=== PATIENT | female | born 1955 | race Caucasian/White ===

== ENCOUNTER 2016-11-24 09:55 | Day surgery (SDC) | payer BC ==
[~2016-11-24] VITALS: Ht 160 cm; Wt 73.9 kg
[~2016-11-24 09:55] MED LIST: ADULT LOW DOSE81 MG PO; ALLOPURINOL100 MG PO; COLACE100 MG PO; COZAAR25 MG PO; LEVOTHYROXINE25 MCG PO; LIPITOR40 MG PO; LISINOPRIL2.5 MG PO; METFORMIN HCL500 MG PO; METOPROLOL SUCC25 MG PO; TOPAMAX25 MG PO; TORSEMIDE20 MG PO
--- NOTE | 2016-11-24 12:01 | NUR ---
11/24/16 1201 Tennille Oh REPORT FROM IT PROJECT LEAD.
== END 2016-11-24 11:50 | disposition home or self-care (01) ==
LOC: OPS 09:55 → DS 09:55 → OPS 10:45
PROVIDERS: Colon & Rectal Surgery
PROC: 0DBE8ZX Excision of Large Intestine, Via Natural or Artificial Opening Endoscopic, Diagnostic (ICD-10-PCS; 2016-11-24)
PROC: 0DBP8ZX Excision of Rectum, Via Natural or Artificial Opening Endoscopic, Diagnostic (ICD-10-PCS; 2016-11-24)
PROC: 0DBN8ZX Excision of Sigmoid Colon, Via Natural or Artificial Opening Endoscopic, Diagnostic (ICD-10-PCS; principal; 2016-11-24 10:45)
DX: Z12.11 Encounter for screening for malignant neoplasm of colon (principal); D12.6 Benign neoplasm of colon, unspecified; K63.5 Polyp of colon; I25.10 Atherosclerotic heart disease of native coronary artery without angina pectoris; I25.2 Old myocardial infarction; I10 Essential (primary) hypertension; J45.909 Unspecified asthma, uncomplicated; E78.5 Hyperlipidemia, unspecified; E03.9 Hypothyroidism, unspecified; E11.9 Type 2 diabetes mellitus without complications; M10.9 Gout, unspecified; Z79.899 Other long term (current) drug therapy; Z98.890 Other specified postprocedural states; Z88.5 Allergy status to narcotic agent
CPT/HCPCS: 00810; J2250; J2704; J3010; J7120

== ENCOUNTER 2017-04-14 18:00 | Emergency (ER) | payer OTHER, BC ==
[~2017-04-14] VITALS: Ht 160 cm; Wt 73.9 kg
[2017-04-14] MEDS ORDERED: TOPIRAMATE50 MG PO (18:18)
[2017-04-14] MEDS ORDERED: FUROSEMIDE40 MG PO (18:18)
[2017-04-14] MEDS ORDERED: HAIR, SKIN & N1 EAC1 PO (18:19)
[2017-04-14] MEDS ORDERED: BACLOFEN10 MG PO (18:41)
[2017-04-14] MEDS ORDERED: KETOROLAC TROME10 MG PO (18:41)
== END 2017-04-14 18:44 | disposition home or self-care (01) ==
LOC: ED 18:00
DX: S16.1XXA Strain of muscle, fascia and tendon at neck level, initial encounter (principal); M62.838 Other muscle spasm; R51 Headache; E11.9 Type 2 diabetes mellitus without complications; F32.9 Major depressive disorder, single episode, unspecified; F41.9 Anxiety disorder, unspecified; Z96.651 Presence of right artificial knee joint; Z90.49 Acquired absence of other specified parts of digestive tract; Z90.710 Acquired absence of both cervix and uterus; Z88.5 Allergy status to narcotic agent; Z79.899 Other long term (current) drug therapy; Z79.82 Long term (current) use of aspirin; V89.2XXA Person injured in unspecified motor-vehicle accident, traffic, initial encounter
CPT/HCPCS: 99283

== ENCOUNTER 2017-06-22 12:26 | Emergency (ER) | payer BC ==
[~2017-06-22] VITALS: Ht 160 cm; Wt 73.9 kg
[~2017-06-22 12:26] MED LIST changes: +BACLOFEN10 MG PO; +FUROSEMIDE40 MG PO; +HAIR, SKIN & N1 EAC1 PO; +KETOROLAC TROME10 MG PO; +TOPIRAMATE50 MG PO
[2017-06-22] MEDS ORDERED: METHYLPREDNISOLO4 M1 PO (13:28)
[2017-06-22] MEDS ORDERED: FAMCICLOVIR500 MG PO (13:28)
== END 2017-06-22 13:40 | disposition home or self-care (01) ==
LOC: ED 12:26
DX: G51.0 Bell's palsy (principal); Z96.651 Presence of right artificial knee joint; Z90.49 Acquired absence of other specified parts of digestive tract; Z98.890 Other specified postprocedural states; Z90.710 Acquired absence of both cervix and uterus; Z88.0 Allergy status to penicillin; Z79.899 Other long term (current) drug therapy; Z79.82 Long term (current) use of aspirin
CPT/HCPCS: 70450; 80053; 85025; 99284

== ENCOUNTER 2021-02-13 16:59 | Emergency (ER) | payer BC ==
[~2021-02-13] VITALS: Ht 160 cm; Wt 88.2 kg
[~2021-02-13 16:59] MED LIST changes: +FAMCICLOVIR500 MG PO; +METHYLPREDNISOLO4 M1 PO
[2021-02-13] MEDS ORDERED: PREDNISONE20 MG PO (20:32)
== END 2021-02-13 20:51 | disposition home or self-care (01) ==
LOC: ED 16:59
DX: T63.481A Toxic effect of venom of other arthropod, accidental (unintentional), initial encounter (principal); K14.8 Other diseases of tongue; K13.0 Diseases of lips; E11.9 Type 2 diabetes mellitus without complications; Z96.651 Presence of right artificial knee joint; Z90.89 Acquired absence of other organs; Z95.1 Presence of aortocoronary bypass graft; Z90.49 Acquired absence of other specified parts of digestive tract; Z90.710 Acquired absence of both cervix and uterus; Z88.5 Allergy status to narcotic agent; Z79.82 Long term (current) use of aspirin; Z79.899 Other long term (current) drug therapy
CPT/HCPCS: 96374; 96375; 99284-25; J1200; J2930

== ENCOUNTER 2022-05-19 07:00 | Day surgery (SDC) | payer BC ==
[~2022-05-19] VITALS: Ht 160 cm; Wt 82.3 kg
[~2022-05-19 07:00] MED LIST changes: +CRANBERRY200 MG PO; +JARDIANCE25 MG PO; +KRILL OIL500 MG PO; +PREDNISONE20 MG PO; +TRULICITY0.75 MG/0.
--- NOTE | 2022-05-19 08:46 | NUR ---
PT ALERT, ORIENTED AND HAS HAD PREVIOUS SCOPE. ALL QUESTIONS ASKED ANSWERED. PTS' WILL BE HERE FOR DC. PT REQUESTED PRAYER, WILL FOLLOW
--- NOTE | 2022-05-19 08:59 | NUR ---
05/19/22 0859 Trixie French 0853-PT TO PACU IN LL POSITION. EYES CLOSED SLEEPING WITH ORAL AIRWAY IN PLACE. PT DOES NOT RESPOND TO VERBAL OR TACTILE STIMULI. BREATHING EASY AND UNLABORED. SPO2 >95% ON 6L O2 SIMPLE MASK. 0858- PT CONTINUES TO SLEEP IN LL POSITION EYES CLOSED WITH ORAL AIRWAY IN PLACE. DOES NOT RESPOND TO VERBAL OR TACTILE STIMULI. BREATHING EASY AND UNLABORE. SPO2 >95% ON 6 L O2 VIA SIMPLE MASK.
--- NOTE | 2022-05-20 06:21 | OR ---
[facility] [address], [place] [address] Signed DATE OF OPERATION: SURGEON: Karyna Hinojosa MD PREOPERATIVE DIAGNOSIS: Personal history of colonic polyps at age 61 in 2017. POSTOPERATIVE DIAGNOSES: 1. 7 mm polyp distal right colon (snare). 2. 4 mm polyp at 45 cm (left colon). 3. 4 mm polyp at distal sigmoid colon. 4. 3 mm polyp at 6 cm (rectum). 5. Minimal internal hemorrhoids. PROCEDURE: Colonoscopy with snare polypectomy and hot biopsy. ESTIMATED BLOOD LOSS: None. INDICATIONS: Alissa is a 66-year-old obese diabetic female, asked to see me for followup colonoscopy. We helped her in 2017 at the age of 61. She had several hyperplastic polyps and adenomatous polyps removed. They were all less than 5 mm in diameter. We did biopsy the base of her appendix, which came back unremarkable. Due to her medical history, she does require monitored anesthesia care. We asked her to come back in one year for followup. Unfortunately with her HI and her open-heart surgery plus the COVID pandemic, she is just now returning. 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 She really has no lower GI complaints. No family history of colon cancer or polyps. In the office, I gave her a pamphlet on colonoscopy. She recalls the nature of the test. There is risk including, but not limited to gas bloating, crampy abdominal pain, bleeding, perforation requiring surgery and missed diagnosis. She recalls the need for monitored anesthesia care. She had expressed understanding and wished to proceed. PROCEDURE NOTE: Alissa was taken into our endoscopy suite and placed in the left lateral decubitus position. She was given monitored anesthesia care with propofol per our nurse trust manager. A digital rectal exam was performed and this was unremarkable. She had good sphincter tone. No external hemorrhoids. No masses. The adult colonoscope was introduced and advanced all around into the cecum under direct visualization of the Electronically Signed By: KARYNA HINOJOSA MD 05/20/22 0621 PATIENT NAME: ALISSA GIBSON OPERATIVE REPORT DATE OF : 57 REPORT #: [id number] PHYSICIAN: KARYNA HINOJOSA MD PCP: LORETTA WALKER MD REPORT IS CONFIDENTIAL AND NOT TO BE RELEASED WITHOUT AUTHORIZATION [facility] [address], [place] [address] Signed camera without difficulty. She took just a little abdominal compression to get the scope directly into the cecum itself. Overall, her prep was good. There were several areas we had to suction out. We could easily see the appendiceal orifice and it was unremarkable. The scope was then slowly withdrawn. We took pictures throughout for photodocumentation. We used our snare to divide the polyp in the distal right colon. We thought we suctioned it directly through the scope, but we never could find it in our trap. We did remove the base of that polyp with a hot biopsy forceps. The other polyps were removed easily with hot biopsy forceps. There was no diverticulosis. Once in the rectum, the scope had been retroflexed and she has just minimal internal hemorrhoid tissue. After this, the gas was suctioned out and the colonoscope removed. Alissa tolerated the procedure quite well. RECOMMENDATIONS: I will see Alissa back in my office in 7 to 14 days to review her results. Karyna Hinojosa MD ALB/MODL /[id number] cc: MD Karyna Boyce MD Lohith Veerappa Reddy, MD Copies: MAAME HARMAN MD, ANDREW L MD REDDY, LOHITH MD ~ Electronically Signed By: KARYNA HINOJOSA MD 05/20/22 0621 PATIENT NAME: ALISSA GIBSON OPERATIVE REPORT DATE OF : 57 REPORT #: [id number] PHYSICIAN: KARYNA HINOJOSA MD PCP: LORETTA WALKER MD REPORT IS CONFIDENTIAL AND NOT TO BE RELEASED WITHOUT AUTHORIZATION
--- NOTE | 2022-05-24 18:46 | PATH ---
[facility] [address] [facility] [place], [place] [address] Signed SPECIMEN(S): A ASCENDING/RIGHT COLON POLYP SPECIMEN(S): B DESCENDING/LEFT COLON POLYP AT 45 CM SPECIMEN(S): C SIGMOID POLYP AT 20 CM SPECIMEN(S): D RECTAL POLYP AT 6 CM SPECIMEN SOURCE: A. ASCENDING/RIGHT COLON POLYP B. DESCENDING/LEFT COLON POLYP AT 45 CM C. SIGMOID POLYP AT 20 CM D. RECTAL POLYP AT 6 CM CLINICAL HISTORY: History of polyps. Postop: Polyps, internal hemorrhoids. FINAL PATHOLOGIC DIAGNOSIS: A. Colon, ascending/right, polypectomy: - Tubular adenoma. - There is no evidence of high-grade dysplasia or malignancy. B. Colon, descending/left, 45 cm, polypectomy: - Benign colonic mucosa with prominent intramucosal lymphoid aggregate. - No evidence of neoplasia. C. Colon, 20 cm, polypectomy: - Benign colonic mucosa with prominent intramucosal lymphoid aggregate. - No evidence of neoplasia. D. Rectum, 6 cm, polypectomy: - Hyperplastic polyp. - There is no evidence of dysplasia or malignancy. COMMENT: Regarding specimens B and C, sections of colonic tissue demonstrate a benign intramucosal lymphoid aggregate. Intramucosal lymphoid aggregates can sometimes appear as polyps endoscopically. They have no clinical significance. There is no evidence of dysplasia or malignancy. SHARONAK:antonio:C2NR MICROSCOPIC EXAMINATION: Histologic sections of all submitted blocks are examined by light microscopy. These findings, together with the gross examination, support the pathologic diagnosis. PATIENT NAME: HOLDEN GIBSON PATHOLOGY DATE OF : 57 REPORT #: [id number] PHYSICIAN: DUANE FLOWER PCP: LORETTA WALKER MD REPORT IS CONFIDENTIAL AND NOT TO BE RELEASED WITHOUT AUTHORIZATION [facility] [address] [place], [place] [address] Signed GROSS DESCRIPTION: A. The specimen, labeled and designated "Gibson, distal ascending colon base of polyp biopsy," is received in formalin and consists of one ponce soft tissue fragment, 0.2 cm. Entirely submitted in (A1). B. The specimen, labeled and designated "Gibson, descending colon polyp at 45 cm," is received in formalin and consists of one ponce soft tissue fragment, 0.2 cm. Entirely submitted in (B1). C. The specimen, labeled and designated "Gibson, distal sigmoid colon polyp at 20 cm," is received in formalin and consists of one ponce soft tissue fragment, 0.1 cm. Entirely submitted in (C1). D. The specimen, labeled and designated "Gibson, rectum polyp at 6 cm," is received in formalin and consists of one ponce soft tissue fragment, 0.2 cm. Entirely submitted in (D1). JS (under the direct supervision of a pathologist) The Gross Description was prepared using a voice recognition system. The report was reviewed for accuracy; however, sound-alike word errors, addition and/or deletions may occur. If there is any question about this report, please contact Client Services. PERFORMING LABORATORY: The technical component was performed by [employer], [address] [place] [id number] (CLIA# [id number]). The professional interpretation was performed by [email or web address], [facility], [address] [place] [place] [address] (CLIA#: [id number]). Diagnostician: Joel Mari MD Pathologist Electronically Signed 05/24/2022 Copies: ~ PATIENT NAME: HOLDEN GIBSON PATHOLOGY DATE OF : 57 REPORT #: [id number] PHYSICIAN: DUANE PATHOLOGY PCP: LORETTA WALKER MD REPORT IS CONFIDENTIAL AND NOT TO BE RELEASED WITHOUT AUTHORIZATION
== END 2022-05-19 09:35 | disposition home or self-care (01) ==
LOC: DS 07:00 → OPS 07:00
PROVIDERS: ATTEND Colon & Rectal Surgery
PROC: 0DBF8ZX Excision of Right Large Intestine, Via Natural or Artificial Opening Endoscopic, Diagnostic (ICD-10-PCS; 2022-05-19)
PROC: 0DBM8ZX Excision of Descending Colon, Via Natural or Artificial Opening Endoscopic, Diagnostic (ICD-10-PCS; principal; 2022-05-19 08:00)
DX: Z12.11 Encounter for screening for malignant neoplasm of colon (principal); D12.2 Benign neoplasm of ascending colon; K62.1 Rectal polyp; K63.5 Polyp of colon; K64.8 Other hemorrhoids; I25.2 Old myocardial infarction; I25.10 Atherosclerotic heart disease of native coronary artery without angina pectoris; E66.9 Obesity, unspecified; E11.9 Type 2 diabetes mellitus without complications; I10 Essential (primary) hypertension; E78.5 Hyperlipidemia, unspecified; E03.9 Hypothyroidism, unspecified; Z95.1 Presence of aortocoronary bypass graft; Z96.651 Presence of right artificial knee joint; Z79.82 Long term (current) use of aspirin; Z79.899 Other long term (current) drug therapy; Z79.890 Hormone replacement therapy; Z79.84 Long term (current) use of oral hypoglycemic drugs; Z79.85 Long-term (current) use of injectable non-insulin antidiabetic drugs; Z88.5 Allergy status to narcotic agent; Z88.8 Allergy status to other drugs, medicaments and biological substances
CPT/HCPCS: J0690; J2704; J7121

== ENCOUNTER 2024-12-27 10:02 | Emergency (ER) | payer BC ==
[~2024-12-27] VITALS: Ht 160 cm; Wt 87.1 kg
[2024-12-27 12:39] VITALS: BP 135/76
== END 2024-12-27 12:39 | disposition home or self-care (01) ==
LOC: ED 10:02
DX: M79.604 Pain in right leg (principal); E11.9 Type 2 diabetes mellitus without complications; Z88.8 Allergy status to other drugs, medicaments and biological substances; Z88.5 Allergy status to narcotic agent; Z79.82 Long term (current) use of aspirin; Z79.899 Other long term (current) drug therapy
CPT/HCPCS: 93971; 99283-25